=== PATIENT | female | born 1935 | race Caucasian/White ===

== ENCOUNTER 2018-02-27 05:35 | Observation (INO) ==
[2018-02-27] MEDS ORDERED: Chlorhexidine Gluconate 2% 1 Pack (2 Cloths) TOPICAL SCH (06:37)
[2018-02-27] MEDS ORDERED: Metoprolol Tartrate 25 MG Tablet PO SCH (06:37)
[2018-02-27] MEDS ORDERED: ceFAZolin 1 GM Premix Inj 1 GM/50 ML PIGGYBACK IV.SIG SCH (06:45)
[2018-02-27] MEDS ORDERED: Heparin - SQ 10,000 UNITS/ML Vial SQ SCH (06:45)
[2018-02-27] MEDS ORDERED: Sodium Chlor 0.9% Inj 500 ML IV.SIG SCH (07:00)
[2018-02-27] MEDS ORDERED: Lidocaine 1%/Epinephrine 1:100,000 Inj 30 ML Vial ONE (07:05)
[2018-02-27] MEDS ORDERED: Artificial Tears Opth Oint 3.5 GM Tube ONE (07:50)
[2018-02-27] MEDS ORDERED: Sugammadex Inj 200 MG/2 ML Vial IV.PUSH ONE (09:50)
[2018-02-27] MEDS ORDERED: LORazepam 0.5 MG Tablet PO PRN (10:24)
[2018-02-27] MEDS ORDERED: fentaNYL Citrate Inj 100 MCG/2 ML Ampul ONE (10:43)
[2018-02-27] MEDS: KCL 20 mEq/D5W/NaCl 0.45% Inj 1,000 ML IV.CONT SCH ×2 (11:36→20:56)
--- NOTE | 2018-02-27 12:16 | MP ---
cc: Gerri Frausto MD, Jacob MD (Emdat Autofax) Golden Chowdhury MD DATE OF OPERATION: 02/27/2018 DATE OF PROCEDURE: 02/27/2018. PREOPERATIVE DIAGNOSIS: Grade 1 endometrial adenocarcinoma. POSTOPERATIVE DIAGNOSES: Grade 1 endometrial adenocarcinoma and left pelvic adhesions; diverticulosis. PROCEDURE PERFORMED: Robotic-assisted laparoscopic hysterectomy, bilateral salpingo-oophorectomy, lysis of adhesions. 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 ANESTHESIA: General endotracheal anesthesia. ESTIMATED BLOOD LOSS: 50 mL IV FLUIDS: 1500 mL URINE OUTPUT: 25 mL HISTORY: An 82-year-old female with postmenopausal bleeding, thickened endometrial stripe. Biopsy showed a grade 1 endometrial cancer. She was counseled regarding these findings and options for treatment and presents now for surgical management. She was seen in the preop holding area accompanied by family where the finding and plan of care are again discussed. Questions were asked and answered. She expressed good understanding and would like to move forward with surgery. FINDINGS: The uterine cavity sounded to 9 cm. Tubes and ovaries grossly appeared normal. There were no appreciably enlarged pelvic or paraaortic lymph nodes. The peritoneal surfaces were smooth without obvious implants or nodularity. There were adhesions between the sigmoid colon, descending colon against the left pelvic sidewall and left abdominal wall with diverticulosis, but without evidence of active diverticulitis. The liver diaphragm edges were smooth. The omentum grossly appeared normal. The large and small bowel and adjacent mesentery appeared normal, without any peritoneal implants. Preliminary pathology of the uterus showed a tumor to be approximately 3 cm in dimension, primarily exophytic. It was superficial if it invaded into the myometrium. The estimate was only approximately 2 mm. There was no cervical extension. Preoperative biopsy showed it to be a grade 1 tumor. PROCEDURE: She was taken to the operating room and placed in dorsal lithotomy position, after general endotracheal anesthesia was administered. A timeout was undertaken. She was identified by site recognition and hospital ID bracelet and the proposed procedure was reviewed and confirmed. She was carefully positioned in padded Fred stirrups. Her arms were padded and secured to the sides. She was further secured to the operating table with egg crate padding and tape in a cross-chest over the shoulder fashion. All sites noted to be properly aligned with no malalignment or pressure points. She was prepped in sterile fashion; draped below the waist, placed in lithotomy position. The cervix was grasped. Uterine cavity sounded, cervix dilated and a standard VCare manipulator inserted and secured in usual fashion. Velasquez catheter was placed in the bladder. She was returned to a low lithotomy position. Change of sterile gloves was undertaken. We completed draping in anticipation of laparoscopy. After confirming that an orogastric tube was in the stomach on suction and with manual elevation of the abdominal wall, under direct laparoscopic visualization, a 5 mm cannula was introduced into the left upper quadrant. Carbon dioxide gas was insufflated and an atraumatic entry was confirmed. A 12 mm cannula was placed in the midline above the umbilicus, 8 mm cannula placed in the right upper quadrant and left lateral quadrant and the original 5 mm cannula exchanged for an 8 mm cannula. She was placed in Trendelenburg position. The peritoneal washings were obtained for cytology. The anatomy was explored with findings as described above. The small bowel was folded back on its mesenteric root and 3 Ray-Ty sponges were placed around the root of the small bowel mesentery. The robotic system was brought into the operative field and attached in the usual fashion. Monopolar scissors, fenestrated bipolar forceps and ProGrasp manipulators were placed in arms #1, 2, and 3 respectively and I took my place at the surgeon's console. The right round ligament was isolated, cauterized, and transected. The anterior and posterior leafs of the broad ligament were opened and the right ureter was identified. The right infundibulopelvic ligament was isolated. The intervening peritoneum was opened. The infundibulopelvic ligament was isolated to the level of the pelvic brim where it was cauterized and transected. Posterior peritoneum opened along the right side of the uterus and cervix and the right vesicouterine peritoneum was dissected off the lower uterine segment and cervix and the right uterine vessels were skeletonized. The right uterine vessels were then cauterized and transected as were the cardinal, paracervical and uterosacral ligaments. Attention was directed toward the left side ,where adhesions were taken down to mobilize the colon and pericolonic fat from attachments against the left pelvic sidewall. Dissection was continued further until the left sidewall structures could be identified. The left round ligament was isolated, cauterized, and transected and the anterior and posterior leafs of the broad ligament were further developed. The left ureter was identified. The left infundibulopelvic ligament was isolated. The intervening peritoneum was opened and the infundibulopelvic ligament was isolated and cauterized at the level of the pelvic brim and transected. Posterior peritoneum opened along the left side of the uterus and cervix and the left vesicouterine peritoneum was dissected off the lower uterine segment and cervix. The left uterine vessels were skeletonized and cauterized and transected as were the cardinal, paracervical and uterosacral ligaments. Circumferential colpotomy was performed, the cervix from the upper vagina and the specimen was delivered transvaginally which included uterus, cervix, tubes and ovaries, and the pneumo-occluder balloon was placed in the vagina to maintain pneumoperitoneum. Instruments 1 and 3 exchanged for needle drivers as a 0-Vicryl suture was introduced. The vaginal cuff was closed starting at the left corner; full-thickness closure, incorporating the uterosacral ligament and posterior peritoneum. The closure was held on countertraction as a running continuous full-thickness closure was carried across the vaginal cuff to the contralateral corner where was similarly secured and tied via instrument tie. The needle was cut and removed. The pelvis was thoroughly irrigated. Small bleeders rendered hemostatic with bipolar cautery. There was a good margin between the vaginal cuff suture line and the bladder. There was good peristalsis bilaterally of the ureters, the spaces were opened bilaterally and the retroperitoneum to visually and palpably inspect the lymph nodes and there were no appreciably enlarged lymph nodes detected in the pelvis or the periaortic region. Pathology came back showing a very superficial grade 1 tumor, such that it was felt that the chance of extrauterine disease was relatively low and the chance of morbidity associated with extensive dissection and more time under anesthesia may exceed benefits. It was felt that all reasonable surgical objectives had been completed in this individual. The robotic instruments were removed. The robotic system was disengaged from the operative field. I reentered the bedside under sterile condition. Each of the 3 Ray-Ty sponges that were placed in the peritoneum were grasped and removed through the 12 mm cannula, each were inspected and noted to be removed in their entirety. Visual inspection confirmed there were no remaining foreign objects in the peritoneal cavity and preliminary counts were correct. The 12 mm fascial defect was closed with 0-Vicryl interrupted sutures using a needle fascial closure apparatus. They were tied securely which rendered the fascia completely airtight and hemostatic. The remaining cannulas were drawn and withdrawn. The carbon dioxide gas was removed from the peritoneal cavity; 3-0 Vicryl subcutaneous, 3-0 Vicryl subcuticular and Steri-Strips were used to close these incisions. She was returned to dorsal lithotomy position. Pelvic exam confirmed the vaginal cuff was well supported. There were no vaginal lacerations, no bleeding, although there was some superficial mucosal irritation along the sidewalls and introitus, which were rendered hemostatic with topical silver nitrate. There were no remaining foreign objects in the vagina. Final counts were correct. She was returned to dorsal supine position and was pending reversal of anesthesia, when I left the operating room to precede her to the postanesthesia care unit. MD MARY Paula/geraldo , 11:43 AM , 11:59 AM
[2018-02-27] MEDS: Ketorolac Inj 30 MG/ML (IVP) Vial IV.PUSH SCH ×3 (12:45→23:56)
--- NOTE | 2018-02-27 16:03 | P.PNONC ---
Subjective Interval history: post op note patient seen in PACU awaiting bed states incisions are sore but otherwise no complaints denies n/v sipping fluids Objective Vital Signs/Intake & Output: Vital Signs 02/27/18 06:38 02/27/18 10:35 02/27/18 10:45 Temperature 97.6 F 98.5 F Pulse Rate 64 90 86 Respiratory Rate 18 23 20 Blood Pressure 130/69 103/50 L 96/51 L Pulse Oximetry 96 98 98 02/27/18 11:00 02/27/18 11:15 02/27/18 11:30 Temperature Pulse Rate 87 84 83 Respiratory Rate 16 16 16 Blood Pressure 119/58 L 117/58 L 111/59 L Pulse Oximetry 96 97 95 02/27/18 11:45 02/27/18 12:00 02/27/18 12:15 Temperature Pulse Rate 83 85 85 Respiratory Rate 16 15 15 Blood Pressure 112/57 L 115/59 L 116/58 L Pulse Oximetry 96 94 L 95 02/27/18 12:30 02/27/18 12:45 02/27/18 13:00 Temperature Pulse Rate 84 Respiratory Rate 15 15 15 Blood Pressure 121/57 L 119/57 L 118/56 L Pulse Oximetry 95 95 96 02/27/18 13:30 02/27/18 14:00 02/27/18 14:30 Temperature Pulse Rate 90 91 H 92 H Respiratory Rate 16 16 16 Blood Pressure 120/55 L 118/57 L 134/63 Pulse Oximetry 94 L 94 L 95 02/27/18 15:00 Temperature Pulse Rate 90 Respiratory Rate 16 Blood Pressure 131/63 Pulse Oximetry 95 Intake & Output 02/26/18 02/27/18 02/27/18 18:59 06:59 18:59 Intake Total 1300 / 1300 Output Total 75 / 75 Balance 1225 / 1225 Weight 74.8 kg Intake: Anesthesia Amount 1300 / 1300 Output: Urine 25 / 25 Estimated Blood Loss 50 / 50 Other: Weight On Admission 74.8 kg Laboratory Results: Laboratory Results - last 24 hr 02/27/18 06:42 Blood Type O Negative Blood Type Recheck Required Antibody Screen Negative Medications: Active Medications Generic Name Dose Route Start Last Admin Trade Name Freq PRN Reason Stop Dose Admin Chlorhexidine Gluconate 3 pack 02/27/18 06:37 02/27/18 06:58 Chlorhexidine 2% Cloth TOPICAL 02/27/18 23:59 3 pack [employer] MARY Administration Cefazolin Sodium/Dextrose 1 gm in 50 mls @ 100 mls/hr 02/27/18 06:45 07:16 Ancef 1 Gm Premix Inj IV.SIG 03/02/18 06:44 100 mls/hr [employer] MARY Administration Lactated Ringer's 1,000 mls @ 30 mls/hr 02/27/18 06:45 02/27/18 06:57 Lr 1000 Ml Inj IV.SIG 02/28/18 06:44 30 mls/hr .Q24H MARY Administration Potassium Chloride/Dextrose/Sod Cl 1,000 mls @ 100 mls/hr 02/27/18 10:30 11:36 D5w/1/2ns + Kcl 20 Meq Inj IV.CONT 100 mls/hr .Q10H MARY Administration Ketorolac Tromethamine 15 mg 02/27/18 12:00 02/27/18 12:45 Toradol Inj IV.PUSH 02/28/18 06:01 15 mg Q6HR MARY Administration Metoprolol Tartrate 25 mg 02/27/18 06:37 02/27/18 06:58 Lopressor PO 02/27/18 23:59 Not Given [employer] [facility] Miscellaneous Information 1 each 02/27/18 06:37 02/27/18 06:57 Misc Nursing Information OTHER 02/27/18 06:38 Not Given ONCE ONE Povidone Iodine 1 applicatio 02/27/18 06:37 02/27/18 06:58 Betadine 5% Antisepsis Kit EACH NARE 02/27/18 23:59 1 applicatio [employer] MARY Administration Objective Remarks: GENERAL: Well-nourished, well-developed patient. SKIN: Warm and dry. HEAD: Normocephalic. EYES: No scleral icterus. No injection or drainage. CARDIOVASCULAR: Regular rate and rhythm without murmurs. RESPIRATORY: No accessory muscle use. GASTROINTESTINAL: Abdomen soft, SS are c/d/i EXTREMITIES: teds and scds MUSCULOSKELETAL: Adequate muscle tone. NEUROLOGICAL: No obvious focal deficit. Awake, alert, and oriented x3. PSYCHIATRIC: Appropriate mood and affect; insight and judgment normal. Assessment/Plan - Plan post op s/p RA lap hyst with BSO post op orders in chart ADAT Velasquez to straight drain OOB to chair IS to bedside Percocet and Toradol for pain
[2018-02-27 17:23] VITALS: RESP 18
[2018-02-27] MEDS: Metoprolol Tartrate 25 MG Tablet PO SCH (20:55)
[2018-02-28 05:22] VITALS: O2SAT 95
[2018-02-28 05:54] LABS: Baso % (Auto) 0.1 % (0.0-2.0); Hematocrit 33.2 % (35.0-46.0); Hemoglobin 11.1 gm/dL (11.6-15.3); Lymph # (Auto) 1.1 th/mm3 (1.0-4.8); Lymph % (Auto) 8.6 % (9.0-44.0); Mean Corpuscular HGB Conc 33.4 % (32.0-36.0); Mean Corpuscular Hemoglobin 31.5 pg (27.0-34.0); Mean Corpuscular Volume 94.5 fL (80.0-100.0); Mean Platelet Volume 8.4 fL (7.0-11.0); Mono # (Auto) 0.9 th/mm3 (0.0-0.9); Mono % (Auto) 6.9 % (0.0-8.0); Neut # (Auto) 10.6 th/mm3 (1.8-7.7); Neut % (Auto) 84.4 % (16.0-70.0); Platelet Count 240 th/mm3 (150-450); Red Blood Count 3.51 mil/mm3 (4.00-5.30); Red Cell Distribution Width 13.2 % (11.6-17.2); White Blood Count 12.5 th/mm3 (4.0-11.0)
[2018-02-28] MEDS: Ketorolac Inj 30 MG/ML (IVP) Vial IV.PUSH SCH (06:09)
[2018-02-28 06:23] LABS: Calcium 7.8 mg/dL (8.5-10.1); Carbon Dioxide 25.7 meq/L (21.0-32.0); Potassium 4.1 meq/L (3.5-5.1)
[2018-02-28] MEDS: KCL 20 mEq/D5W/NaCl 0.45% Inj 1,000 ML IV.CONT SCH (07:35)
--- NOTE | 2018-02-28 07:55 | MD ---
cc: Gerri Frausto MD, Jacob MD (Emdat Autofax) Golden Chowdhury MD DATE OF DISCHARGE: 02/28/2018 PROCEDURE: Robotic-assisted laparoscopic hysterectomy, bilateral salpingo-oophorectomy, lysis of adhesions. DIAGNOSIS: Endometrial cancer. HOSPITAL COURSE: She did well in her early postoperative period and remained hemodynamically stable, tolerated oral intake. Velasquez catheter removed pending voiding. Ins and outs 2540/475. Labs this morning show an H and H of 11.1 and 33.2. Electrolytes show BUN and creatinine 7.76, potassium 4.1. PHYSICAL EXAMINATION: VITAL SIGNS: She is afebrile, pulse is 61 to 96, respirations 18, blood pressure 99-142/49-64, O2 saturations greater than or equal to 92% while asleep, 95% while awake. She is alert and oriented x3, in no acute distress. LUNGS: Clear except for mild basilar HEART: The heart rate is controlled. ABDOMEN: Soft. Incision is clean and dry. GYNECOLOGIC: No bleeding. EXTREMITIES: Nontender. ASSESSMENT: Postoperative day #1. Findings at the time of surgery and steps taken with preliminary pathology reviewed. Activities and restrictions are discussed. Questions were asked and answered. She expressed good understanding. PLAN: I anticipate she will meet the criteria for discharge to home today. She is to resume her prior medications. She will have a prescription for Percocet for pain if she needs it. Our office number is made available and she is to call to schedule followup in 2 weeks or to contact us should she have any questions or problems. Gerri Frausto MD KLM/sv , 07:30 AM , 07:36 AM
[2018-02-28] MEDS: Metoprolol Tartrate 25 MG Tablet PO SCH (08:07)
[2018-02-28] MEDS ORDERED: dilTIAZem CD 120 MG Capsule PO SCH (09:00)
[2018-02-28 12:10] VITALS: BP 120/60; PULSE 69; TEMP 98.1
== END 2018-02-28 14:20 | disposition home or self-care (01) ==
LOC: HSDC 05:35 → HSDI 05:35 → H1EA 16:19
PROVIDERS: ADMIT Obstetrics & Gynecology Gynecologic Oncology; ATTEND Obstetrics & Gynecology Gynecologic Oncology